=== PATIENT | female | born 1980 | race Caucasian/White ===

== ENCOUNTER 2017-01-02 09:38 | Emergency (ER) | payer BC ==
--- NOTE | 2017-01-02 09:48 | Emergency Department Record ---
History of Present Illness - General Chief complaint: Allergic Reaction Stated complaint: ALLERGIC REACTION Time Seen by Provider: 01/02/17 09:48 Source: Patient Mode of Arrival: Ambulatory Limitations: No limitations - History of Present Illness Initial Comments: The patient is here due to having a possible allergix rxn to a medicine. She did see her Psychiatrist yesterday and was started on Naltrexone and did take one at 8am today. She soon after began having trouble breathing and wheezing. There is no rash, hives, or swelling but she does feel very anxious and jittery. The patient states she has not taken any narcotics in over a month and has never taken Naltrexone in the past. She denies any pain or discomfort but is having mild chest tightness due to the YUMIKO. The patient denies any cardiac risk factors. MD Complaint: Allergic reaction Onset/Timin -: Hour(s) Symptoms: Itching, Difficulty breathing Severity: Moderate Treatment Prior to Arrival: None Previous Allergy History: None - Related Data Home Medications Medication Instructions Recorded Confirmed Last Taken Gabapentin [Neurontin] 300 mg PO QID 01/02/17 01/02/17 Unknown Naltrexone HCl [Revia] 50 mg PO DAILY 01/02/17 01/02/17 01/02/17 Trazodone HCl 50 mg PO ASDIR 01/02/17 01/02/17 Unknown Allergies Allergy/AdvReac Type Severity Reaction Status Date / Time No Known Drug Allergies Allergy Verified 01/02/17 09:56 Review of Systems Constitutional: Denies: Chills, Fever Eyes: Denies: Eye discharge ENT: Denies: Congestion Respiratory: Denies: Cough, Dyspnea Cardiovascular: Denies: Arrhythmia, Chest pain Endocrine: Denies: Fatigue Past Medical History - SOCIAL HISTORY Smoking Status: Former smoker - RESPIRATORY Hx Respiratory Disorders: No - CARDIOVASCULAR Hx Cardio Disorders: No - NEURO Hx Neuro Disorders: No - GI Hx GI Disorders: No - Hx Genitourinary Disorders: No - ENDOCRINE Hx Endocrine Disorders: No - MUSCULOSKELETAL Hx Musculoskeletal Disorders: No - PSYCH Hx Psych Problems: No - HEMATOLOGY/ONCOLOGY Hx Hematology/Oncology Disorders: No Physical Exam - General General Appearance: Alert, Oriented x3, Cooperative, Mild distress - Head Head exam: Atraumatic, Normocephalic, Normal inspection - Eye Eye exam: Normal appearance, PERRL - ENT Throat exam: Normal inspection. negative: Tonsillar erythema, Tonsillar exudate - Neck Neck exam: Normal inspection, Full ROM. negative: Tenderness - Respiratory Respiratory exam: Wheezes (midly.). negative: Normal lung sounds bilaterally, Decreased breath sounds, Rhonchi - Cardiovascular Cardiovascular Exam: Regular rate, Normal rhythm, Normal heart sounds - GI/Abdominal GI/Abdominal exam: Soft, Normal bowel sounds. negative: Tenderness - Extremities Extremities exam: Normal inspection, Full ROM, Normal capillary refill. negative: Tenderness - Back Back exam: Reports: Normal inspection - Neurological Neurological exam: Alert, Normal gait. negative: Abnormal gait, Motor sensory deficit - Psychiatric Psychiatric exam: Anxious. negative: Depressed - Skin Skin exam: negative: Rash, Urticaria Course - Reevaluation(s) Reevaluation #1: The patient is doing a lot better at this time. She has receive a Duoneb tx, Solumedrol, and Benadryl with improvement. She did just receive Ativan which seems to be helping a lot. 01/02/17 10:21 Reevaluation #2: The patient is doing better at this time. She states her breathing is a little better at this time. She denies any significant pain or discomfort. 01/02/17 11:19 Reevaluation #3: Due to the patient's clinical picture it is clear to me that she needs a larger hospital. She would like to go to [facility]. I did discuss the case with Dr. Hanna at [facility] and he does accept the patient for admission. The patient is doing much better at this time. Her BP is much improved and her breathing is much better. She denies any significant CP or discomfort at this time. 01/02/17 11:31 Reevaluation #4: The patient is doing much better at this time. Her HR is improved and her BP 115 /60. Biox is 97% on 2 Liters of O2 NC. She is resting much more comfortably with no chest pain or discomfort. 01/02/17 11:58 01/02/17 12:21 The patient is doing much better at this time. She denies any pain but is having mild YUMIKO with tightness. She denies any back or head pain and is breathing much better. She is presently being transferred. Her Biox is 96% on 4 liters of O2 nasal cannula. The patient has urinated 3 times since the Lasix was given. Her BP is 115/60 with a HR of 85. 01/02/17 13:21 Medical Decision Making - Data Complexity MDM Data: Labs Ordered and/or Reviewed, X-Ray Ordered and/or Reviewed, EKG Ordered and/or Reviewed - Lab Data Result diagrams: 01/02/17 09:40 01/02/17 09:40 - EKG Data -: EKG Interpreted by Me (ST at 103, Nonspecific IVCD. No definite acute injury pattern.) - Radiology Data Radiology results: Report reviewed (CXR: Mild to mod CHF.) Disposition Disposition: Transfer Clinical Impression: Pulmonary edema Qualifiers: Chronicity: acute Qualified Code(s): J81.0 - Acute pulmonary edema Disposition: Acute Care Hospital Transfer Transfer To: [facility] Reason For Transfer: Cardiac Accepting Physician: Jacques Time Discussed w/Accepting Physician: 11:33 Condition: (2) Stable Forms: Patient Portal Access Time of Disposition: 11:33
[2017-01-02] MEDS ORDERED: DIPHENHYDRAMINE HCL IV 50 MG/ML VIAL IVP ONE (09:50)
[2017-01-02] MEDS ORDERED: METHYLPREDNISOLONE PF 125MG/VIAL IVP ONE (09:50)
[2017-01-02] MEDS ORDERED: IPRATROPIUM/ALBUTEROL (0.5MG/3MG) NEB INH ONE (09:50)
[2017-01-02] MEDS ORDERED: LORAZEPAM 2 MG/ML VIAL IV ONE (10:08)
[2017-01-02 10:10] LABS: BASO % 0.7 % (0-6); EOS % 1.4 % (0-6); GRAN % 55.2 % (47-80); HEMOGLOBIN 13.7 gm/dl (11.6-16.0); LYMPH % 34.1 % (16-45); MEAN CELL VOLUME 84.3 fl (81-97); MEAN CORPUSCULAR HEMOGLOBIN 27.5 pg (27-33); MEAN CORPUSCULAR HGB CONC 32.6 g/dl (32-36); MEAN PLATELET VOLUME 9.9 fl (7.4-10.4); MONO % 8.6 % (0-9); PLATELET COUNT 328 K/uL (130-400); RED BLOOD COUNT 4.98 M/uL (3.80-5.40); RED CELL DISTRIBUTION WIDTH 13.1 % (11.5-14.5); WHITE BLOOD COUNT W/O DIFF 10.4 K/uL (4.2-12.2)
[2017-01-02] MEDS ORDERED: ALBUTEROL SULFATE (0.083%) 2.5 MG/3 ML NEB INH ONE (10:10)
[2017-01-02 10:17] LABS: ALB/GLOB RATIO 1.6 (1.1-1.8); ALBUMIN 4.5 gm/dL (3.5-5.0); ALKALINE PHOSPHATASE 84 U/L (38-126); ALT/SGPT 34 U/L (9-52); ANION GAP 10.1 (7-16); AST/SGOT 29 U/L (14-36); BILIRUBIN,TOTAL 0.76 mg/dL (0.2-1.3); BLOOD UREA NITROGEN 12 mg/dL (7-17); CARBON DIOXIDE 28.9 mmol/L (22-30); EST GLOMERULAR FILTRATION RATE > 60 ml/min; GLUCOSE,RANDOM 98 mg/dL (70-110); TOTAL PROTEIN 7.3 gm/dL (6.3-8.2)
[2017-01-02] MEDS ORDERED: FUROSEMIDE IV 40MG/4ML VIAL IVP ONE (10:44)
[2017-01-02] MEDS ORDERED: NITROGLYCERIN/D5W 50 MG/250 ML ML IV SCH (11:00)
[2017-01-02 11:09] LABS: CKMB 1.3 ug/L (0-6); TROPONIN I 0.068 ng/mL (0.00-0.034)
[2017-01-02] MEDS ORDERED: METOPROLOL TART 5 MG/5 ML VIAL IV ONE (11:13)
[2017-01-02] MEDS ORDERED: HEPARIN SODIUM 1000 UNIT/1 ML 10ML VIAL IVP ONE (11:28)
[2017-01-02] MEDS: LORAZEPAM 2 MG/ML VIAL IV ONE ×2 (11:28→11:32)
[2017-01-02] MEDS ORDERED: HEPARIN SODIUM/D5W 25,000 UNITS/500 ML BAG IV SCH (11:30)
[2017-01-02 11:57] LABS: INR 0.88; PARTIAL THROMBOPLASTIN TIME 26.3 SECONDS (24.5-39.1); PROTHROMBIN TIME (PATIENT) 9.9 SECONDS (9.5-12.1)
== END 2017-01-02 12:37 | disposition short-term general hospital (02) ==
LOC: ER 09:38
DX: J81.0 Acute pulmonary edema (principal); R07.89 Other chest pain; L29.9 Pruritus, unspecified; R06.00 Dyspnea, unspecified; Z87.891 Personal history of nicotine dependence
CPT/HCPCS: 99285 ×2; 96376; 96365; 96366; 96375; 96368; 82550; 85025; 85730; 85610; 82553; 84484; 80053; 71010; 94640; 93005; 93010; J2060; J1200; J1940; J2930

== ENCOUNTER 2017-01-08 03:41 | Emergency (ER) | payer BC ==
[2017-01-08 03:53] LABS: ARTERIAL BLOOD GAS BASE EXCESS -13.7 mmol/L (-2 - 3); ARTERIAL BLOOD GAS HCO3 20.7 mmol/L (18-23); CARBOXYHEMOGLOBIN 1.1 % (0-1.5); O2 HEMOGLOBIN 24.6 % vol (94-99); TOTAL HEMOGLOBIN 11.2 g/dl (11.6-16)
[2017-01-08 03:56] LABS: ARTERIAL BLD GAS O2 SATURATION 24.8 % (95-98); ARTERIAL BLOOD GAS PCO2 101.1 mmHg (35-48); ARTERIAL BLOOD GAS pH 6.94 (7.35-7.45)
[2017-01-08 04:01] LABS: HEMATOCRIT 36.8 % (35.0-47.0); HEMOGLOBIN 11.5 gm/dl (11.6-16.0); MEAN CELL VOLUME 89.8 fl (81-97); MEAN CORPUSCULAR HGB CONC 31.3 g/dl (32-36); MEAN PLATELET VOLUME 10.3 fl (7.4-10.4); PLATELET COUNT 284 K/uL (130-400); RED CELL DISTRIBUTION WIDTH 13.3 % (11.5-14.5)
[2017-01-08 04:02] LABS: ARTERIAL BLOOD GAS BASE EXCESS -6.2 mmol/L (-2 - 3); ARTERIAL BLOOD GAS HCO3 18.2 mmol/L (18-23); ARTERIAL BLOOD GAS PCO2 33.7 mmHg (35-48); ARTERIAL BLOOD GAS pH 7.35 (7.35-7.45); CARBOXYHEMOGLOBIN 1.7 % (0-1.5); O2 HEMOGLOBIN 13.4 % vol (94-99); TOTAL HEMOGLOBIN 10.1 g/dl (11.6-16)
[2017-01-08 04:03] LABS: ARTERIAL BLD GAS O2 SATURATION 13.4 % (95-98)
[2017-01-08 04:07] LABS: ALB/GLOB RATIO 1.6 (1.1-1.8); ALBUMIN 3.8 gm/dL (3.5-5.0); ANION GAP 19.2 (7-16); BILIRUBIN,TOTAL 0.43 mg/dL (0.2-1.3); CARBON DIOXIDE 20.8 mmol/L (22-30); CREATININE 2.5 mg/dL (0.52-1.04); TOTAL PROTEIN 6.2 gm/dL (6.3-8.2)
[2017-01-08 04:15] LABS: URINE APPEARANCE CLEAR; URINE BILIRUBIN NEGATIVE (NEGATIVE); URINE BLOOD LARGE (NEGATIVE); URINE COLOR YELLOW; URINE GLUCOSE (UA) NEGATIVE (NEGATIVE); URINE KETONE NEGATIVE (NEGATIVE); URINE LEUKOCYTE ESTERASE NEGATIVE (NEGATIVE); URINE NITRITE NEGATIVE (NEGATIVE); URINE PROTEIN TRACE (NEGATIVE); URINE UROBILINOGEN 0.2 E.U./dL (0.20 - 1.00)
[2017-01-08 04:22] LABS: AMPHETAMINE SCREEN URINE NOT DETECTED; BARBITURATE SCREEN URINE NOT DETECTED; BENZODIAZEPINE SCREEN URINE NOT DETECTED; COCAINE SCREEN URINE NOT DETECTED; METHADONE SCREEN URINE NOT DETECTED; METHAMPHETAMINE SCREEN NOT DETECTED; OPIATE SCREEN URINE NOT DETECTED; OXYCODONE SCREEN URINE NOT DETECTED; PHENCYCLIDINE SCREEN URINE NOT DETECTED; PROPOXYPHENE SCREEN URINE NOT DETECTED; THC SCREEN URINE NOT DETECTED; TRICYCLIC ANTIDEPRESSANT SCRN NOT DETECTED
[2017-01-08 04:28] LABS: URINE AMORPHOUS SEDIMENT 3+
--- NOTE | 2017-01-08 04:38 | Emergency Department Record ---
History of Present Illness - General Chief Complaint: Unresponsive Stated Complaint: CARDIAC ARREST Time Seen by Provider: 01/08/17 04:12 Source: EMS Mode of Arrival: EMS Limitations: Altered mental status - History of Present Illness Initial comments: pt was found down by mother for an unknown time. cpr was started. pt was discharged 2 days ago from [facility] for an allergic reaction and low ejection fraction. she was discharged on a zoll life vest. paramedics found pt to be in asystole, they regained a pulse with narcan Treatments Prior to Arrival: Other - Filippo Coma Scale Eye Response: (1) No response Motor Response: (1) No motor response Verbal Response: (1) No verbal response Filippo Total: 3 - Related Data Home Medications Medication Instructions Recorded Confirmed Last Taken Gabapentin [Neurontin] 300 mg PO QID 01/02/17 01/02/17 Unknown Naltrexone HCl [Revia] 50 mg PO DAILY 01/02/17 01/02/17 01/02/17 Trazodone HCl 50 mg PO ASDIR 01/02/17 01/02/17 Unknown Allergies Allergy/AdvReac Type Severity Reaction Status Date / Time No Known Drug Allergies Allergy Verified 01/02/17 09:56 Review of Systems ROS unobtainable: Due to endotracheal tube, Due to mental status Past Medical History - SOCIAL HISTORY Smoking Status: Former smoker - RESPIRATORY Hx Respiratory Disorders: No - CARDIOVASCULAR Hx Cardio Disorders: No - NEURO Hx Neuro Disorders: No - GI Hx GI Disorders: No - Hx Genitourinary Disorders: No - ENDOCRINE Hx Endocrine Disorders: No - MUSCULOSKELETAL Hx Musculoskeletal Disorders: No - PSYCH Hx Psych Problems: No - HEMATOLOGY/ONCOLOGY Hx Hematology/Oncology Disorders: No Physical Exam - General General Appearance: Severe distress, Other (unresponsive) - Head Head exam: Normal inspection - Eye Eye exam: Other (pupils fixed and dilated) Pupils: Normal accommodation - ENT ENT exam: Normal exam, Mucous membranes moist, Normal external ear exam, Normal orophraynx Ear exam: Normal external inspection. negative: External canal tenderness Nasal Exam: Normal inspection. negative: Discharge, Sinus tenderness Mouth exam: Normal external inspection, Tongue normal, Other (et tube in place) Teeth exam: Normal inspection. negative: Dental caries Throat exam: Normal inspection. negative: Tonsillar erythema, Tonsillar exudate - Neck Neck exam: Normal inspection, Full ROM. negative: Tenderness - Respiratory Respiratory exam: Normal lung sounds bilaterally. negative: Respiratory distress - Cardiovascular Cardiovascular Exam: Regular rate, Normal rhythm, Normal heart sounds - GI/Abdominal GI/Abdominal exam: Soft, Normal bowel sounds. negative: Tenderness - Rectal Rectal exam: Deferred - exam: Deferred - Extremities Extremities exam: Normal inspection, Full ROM, Normal capillary refill. negative: Tenderness - Back Back exam: Reports: Normal inspection, Full ROM. Denies: Muscle spasm, Rash noted, Tenderness - Neurological Neurological exam: Altered - Skin Skin exam: Cyanosis, Dry, Intact, Warm Course - Reevaluation(s) Reevaluation #1: 01/08/17 05:00 pt responded to epi and dopamine and vitals improved. pt then went into vfib and was defibrillated and then went into sinus, Reevaluation #2: 01/08/17 05:15 pt again required cpr and defib. once again hr and bp are restored. Reevaluation #3: 01/08/17 05:17 d/w dr cooper who accepted pt Medical Decision Making - Lab Data Result diagrams: 01/08/17 03:48 01/08/17 03:48 Lab Results 01/08/17 01/08/17 01/08/17 Range/Units 03:48 03:48 03:48 WBC 14.0 H (4.2-12.2) K/uL RBC 4.10 (3.80-5.40) M/uL Hgb 11.5 L (11.6-16.0) gm/dl Hct 36.8 (35.0-47.0) % MCV 89.8 (81-97) fl MCH 28.0 (27-33) pg MCHC 31.3 L (32-36) g/dl RDW 13.3 (11.5-14.5) % Plt Count 284 (130-400) K/uL MPV 10.3 (7.4-10.4) fl Neutrophils % 49.0 (47-80) % Band Neutrophils % 0.0 (0-5) % Eosinophils % Not Reportable Basophils % Not Reportable Lymphocytes 41.0 (16-45) % Monocytes 8.0 (0-9) % Basophils 1.0 (0-6) % Eosinophil Count 1.0 (0-6) % APTT 29.40 (24.5-39.1) SECONDS Puncture Site pCO2 (35-48) mmHg pO2 (83-108) mmHg HCO3 (18-23) mmol/L Oxyhemoglobin (94-99) % vol ABG pH (7.35-7.45) ABG O2 Saturation (95-98) % ABG Base Excess (-2 - 3) mmol/L Jaleel Test Carboxyhemoglobin (0-1.5) % Methemoglobin Total Hemoglobin (11.6-16) g/dl Actual Respiration Rate FiO2 Sodium 138 (136-145) mmol/L Potassium 4.1 (3.5-5.1) mmol/L Chloride 98 (98-107) mmol/L Carbon Dioxide 20.8 L (22-30) mmol/L Anion Gap 19.2 H (7-16) BUN 29 H (7-17) mg/dL Creatinine 2.5 H (0.52-1.04) mg/dL Estimated GFR 23 ml/min Random Glucose 210 H (70-110) mg/dL Calcium 8.3 L (8.5-10.1) mg/dL Total Bilirubin 0.43 (0.2-1.3) mg/dL AST 618 H (14-36) U/L ALT 485 H (9-52) U/L Alkaline Phosphatase 76 (38-126) U/L Troponin I 0.048 H (0.00-0.034) ng/mL Total Protein 6.2 L (6.3-8.2) gm/dL Albumin 3.8 (3.5-5.0) gm/dL Globulin 2.4 (1.4-4.8) gm/dL Albumin/Globulin Ratio 1.6 (1.1-1.8) Urine Color Urine Appearance Urine pH (5.0-8.0) Ur Specific [place] (1.002-1.030) Urine Protein (NEGATIVE) Urine Glucose (UA) (NEGATIVE) Urine Ketones (NEGATIVE) Urine Blood (NEGATIVE) Urine Nitrite (NEGATIVE) Urine Bilirubin (NEGATIVE) Urine Urobilinogen (0.20 - 1.00) E.U./dL Ur Leukocyte Esterase (NEGATIVE) Urine RBC (NONE SEEN) Urine WBC (0-2/hpf) Ur Epithelial Cells (FEW) Amorphous Sediment Urine HCG, Qual (NEGATIVE) Urine Opiates Screen Ur Oxycodone Screen Urine Methadone Screen Ur Propoxyphene Screen Ur Barbituates Screen Ur Tricyclics Screen Ur Phencyclidine Scrn Ur Amphetamine Screen U Methamphetamines Scrn U Benzodiazepines Scrn Urine Cocaine Screen Urine Cannabis Screen 01/08/17 01/08/17 01/08/17 Range/Units 03:48 03:50 04:10 WBC (4.2-12.2) K/uL RBC (3.80-5.40) M/uL Hgb (11.6-16.0) gm/dl Hct (35.0-47.0) % MCV (81-97) fl MCH (27-33) pg MCHC (32-36) g/dl RDW (11.5-14.5) % Plt Count (130-400) K/uL MPV (7.4-10.4) fl Neutrophils % (47-80) % Band Neutrophils % (0-5) % Eosinophils % Basophils % Lymphocytes (16-45) % Monocytes (0-9) % Basophils (0-6) % Eosinophil Count (0-6) % APTT (24.5-39.1) SECONDS Puncture Site Not Reportable Not Reportable pCO2 101.1 H* 33.7 L (35-48) mmHg pO2 25.0 L* 17.0 L* (83-108) mmHg HCO3 20.7 18.2 (18-23) mmol/L Oxyhemoglobin 24.6 L 13.4 L (94-99) % vol ABG pH 6.94 L* 7.35 (7.35-7.45) ABG O2 Saturation 24.8 L* 13.4 L* (95-98) % ABG Base Excess -13.7 L -6.2 L (-2 - 3) mmol/L Jaleel Test Not Reportable Not Reportable Carboxyhemoglobin 1.1 1.7 H (0-1.5) % Methemoglobin Not Reportable Not Reportable Total Hemoglobin 11.2 L 10.1 L (11.6-16) g/dl Actual Respiration Rate Not Reportable Not Reportable FiO2 Not Reportable Not Reportable Sodium (136-145) mmol/L Potassium (3.5-5.1) mmol/L Chloride (98-107) mmol/L Carbon Dioxide (22-30) mmol/L Anion Gap (7-16) BUN (7-17) mg/dL Creatinine (0.52-1.04) mg/dL Estimated GFR ml/min Random Glucose (70-110) mg/dL Calcium (8.5-10.1) mg/dL Total Bilirubin (0.2-1.3) mg/dL AST (14-36) U/L ALT (9-52) U/L Alkaline Phosphatase (38-126) U/L Troponin I (0.00-0.034) ng/mL Total Protein (6.3-8.2) gm/dL Albumin (3.5-5.0) gm/dL Globulin (1.4-4.8) gm/dL Albumin/Globulin Ratio (1.1-1.8) Urine Color Yellow Urine Appearance Clear Urine pH 5.5 (5.0-8.0) Ur Specific [place] >= 1.030 (1.002-1.030) Urine Protein Trace H (NEGATIVE) Urine Glucose (UA) Negative (NEGATIVE) Urine Ketones Negative (NEGATIVE) Urine Blood Large H (NEGATIVE) Urine Nitrite Negative (NEGATIVE) Urine Bilirubin Negative (NEGATIVE) Urine Urobilinogen 0.2 (0.20 - 1.00) E.U./dL Ur Leukocyte Esterase Negative (NEGATIVE) Urine RBC 7 - 10 (NONE SEEN) Urine WBC 3 - 5 (0-2/hpf) Ur Epithelial Cells 10 - 15 (FEW) Amorphous Sediment 3+ Urine HCG, Qual (NEGATIVE) Urine Opiates Screen Ur Oxycodone Screen Urine Methadone Screen Ur Propoxyphene Screen Ur Barbituates Screen Ur Tricyclics Screen Ur Phencyclidine Scrn Ur Amphetamine Screen U Methamphetamines Scrn U Benzodiazepines Scrn Urine Cocaine Screen Urine Cannabis Screen 01/08/17 01/08/17 Range/Units 04:10 04:10 WBC (4.2-12.2) K/uL RBC (3.80-5.40) M/uL Hgb (11.6-16.0) gm/dl Hct (35.0-47.0) % MCV (81-97) fl MCH (27-33) pg MCHC (32-36) g/dl RDW (11.5-14.5) % Plt Count (130-400) K/uL MPV (7.4-10.4) fl Neutrophils % (47-80) % Band Neutrophils % (0-5) % Eosinophils % Basophils % Lymphocytes (16-45) % Monocytes (0-9) % Basophils (0-6) % Eosinophil Count (0-6) % APTT (24.5-39.1) SECONDS Puncture Site pCO2 (35-48) mmHg pO2 (83-108) mmHg HCO3 (18-23) mmol/L Oxyhemoglobin (94-99) % vol ABG pH (7.35-7.45) ABG O2 Saturation (95-98) % ABG Base Excess (-2 - 3) mmol/L Jaleel Test Carboxyhemoglobin (0-1.5) % Methemoglobin Total Hemoglobin (11.6-16) g/dl Actual Respiration Rate FiO2 Sodium (136-145) mmol/L Potassium (3.5-5.1) mmol/L Chloride (98-107) mmol/L Carbon Dioxide (22-30) mmol/L Anion Gap (7-16) BUN (7-17) mg/dL Creatinine (0.52-1.04) mg/dL Estimated GFR ml/min Random Glucose (70-110) mg/dL Calcium (8.5-10.1) mg/dL Total Bilirubin (0.2-1.3) mg/dL AST (14-36) U/L ALT (9-52) U/L Alkaline Phosphatase (38-126) U/L Troponin I (0.00-0.034) ng/mL Total Protein (6.3-8.2) gm/dL Albumin (3.5-5.0) gm/dL Globulin (1.4-4.8) gm/dL Albumin/Globulin Ratio (1.1-1.8) Urine Color Urine Appearance Urine pH (5.0-8.0) Ur Specific [place] (1.002-1.030) Urine Protein (NEGATIVE) Urine Glucose (UA) (NEGATIVE) Urine Ketones (NEGATIVE) Urine Blood (NEGATIVE) Urine Nitrite (NEGATIVE) Urine Bilirubin (NEGATIVE) Urine Urobilinogen (0.20 - 1.00) E.U./dL Ur Leukocyte Esterase (NEGATIVE) Urine RBC (NONE SEEN) Urine WBC (0-2/hpf) Ur Epithelial Cells (FEW) Amorphous Sediment Urine HCG, Qual Negative (NEGATIVE) Urine Opiates Screen Not detected Ur Oxycodone Screen Not detected Urine Methadone Screen Not detected Ur Propoxyphene Screen Not detected Ur Barbituates Screen Not detected Ur Tricyclics Screen Not detected Ur Phencyclidine Scrn Not detected Ur Amphetamine Screen Not detected U Methamphetamines Scrn Not detected U Benzodiazepines Scrn Not detected Urine Cocaine Screen Not detected Urine Cannabis Screen Not detected Disposition Disposition: Transfer Clinical Impression: Cardiac arrest Disposition: Acute Care Hospital Transfer Transfer To: [facility] Reason For Transfer: post cardiac arrest Accepting Physician: dr cooper Time Discussed w/Accepting Physician: 05:05 Forms: Patient Portal Access
[2017-01-08 04:42] LABS: TROPONIN I 0.048 ng/mL (0.00-0.034)
[2017-01-08] MEDS ORDERED: AMIODARONE 150MG/100ML BOLUS 150 MG/100 ML ML IV ONE (05:05)
[2017-01-08] MEDS ORDERED: AMIODARONE 360MG/200ML MAINT 360 MG/200 ML ML IV ONE (05:06)
--- NOTE | 2017-01-08 06:05 | Emergency Department Record ---
History of Present Illness - General Chief Complaint: Unresponsive Stated Complaint: CARDIAC ARREST Time Seen by Provider: 01/08/17 04:12 Source: EMS Mode of Arrival: EMS Limitations: Altered mental status - History of Present Illness Treatments Prior to Arrival: Other - Filippo Coma Scale Eye Response: (1) No response Motor Response: (1) No motor response Verbal Response: (1) No verbal response Filippo Total: 3 - Related Data Home Medications Medication Instructions Recorded Confirmed Last Taken Gabapentin [Neurontin] 300 mg PO QID 01/02/17 01/02/17 Unknown Naltrexone HCl [Revia] 50 mg PO DAILY 01/02/17 01/02/17 01/02/17 Trazodone HCl 50 mg PO ASDIR 01/02/17 01/02/17 Unknown Allergies Allergy/AdvReac Type Severity Reaction Status Date / Time No Known Drug Allergies Allergy Verified 01/02/17 09:56 Past Medical History - SOCIAL HISTORY Smoking Status: Former smoker - RESPIRATORY Hx Respiratory Disorders: No - CARDIOVASCULAR Hx Cardio Disorders: No - NEURO Hx Neuro Disorders: No - GI Hx GI Disorders: No - Hx Genitourinary Disorders: No - ENDOCRINE Hx Endocrine Disorders: No - MUSCULOSKELETAL Hx Musculoskeletal Disorders: No - PSYCH Hx Psych Problems: No - HEMATOLOGY/ONCOLOGY Hx Hematology/Oncology Disorders: No Physical Exam - General Limitations: Altered mental status Medical Decision Making - Lab Data Result diagrams: 01/08/17 03:48 01/08/17 03:48 Lab Results 01/08/17 01/08/17 01/08/17 Range/Units 03:48 03:48 03:48 WBC 14.0 H (4.2-12.2) K/uL RBC 4.10 (3.80-5.40) M/uL Hgb 11.5 L (11.6-16.0) gm/dl Hct 36.8 (35.0-47.0) % MCV 89.8 (81-97) fl MCH 28.0 (27-33) pg MCHC 31.3 L (32-36) g/dl RDW 13.3 (11.5-14.5) % Plt Count 284 (130-400) K/uL MPV 10.3 (7.4-10.4) fl Neutrophils % 49.0 (47-80) % Band Neutrophils % 0.0 (0-5) % Eosinophils % Not Reportable Basophils % Not Reportable Lymphocytes 41.0 (16-45) % Monocytes 8.0 (0-9) % Basophils 1.0 (0-6) % Eosinophil Count 1.0 (0-6) % APTT 29.40 (24.5-39.1) SECONDS Puncture Site pCO2 (35-48) mmHg pO2 (83-108) mmHg HCO3 (18-23) mmol/L Oxyhemoglobin (94-99) % vol ABG pH (7.35-7.45) ABG O2 Saturation (95-98) % ABG Base Excess (-2 - 3) mmol/L Jaleel Test Carboxyhemoglobin (0-1.5) % Methemoglobin Total Hemoglobin (11.6-16) g/dl Actual Respiration Rate FiO2 Sodium 138 (136-145) mmol/L Potassium 4.1 (3.5-5.1) mmol/L Chloride 98 (98-107) mmol/L Carbon Dioxide 20.8 L (22-30) mmol/L Anion Gap 19.2 H (7-16) BUN 29 H (7-17) mg/dL Creatinine 2.5 H (0.52-1.04) mg/dL Estimated GFR 23 ml/min Random Glucose 210 H (70-110) mg/dL Calcium 8.3 L (8.5-10.1) mg/dL Total Bilirubin 0.43 (0.2-1.3) mg/dL AST 618 H (14-36) U/L ALT 485 H (9-52) U/L Alkaline Phosphatase 76 (38-126) U/L Troponin I 0.048 H (0.00-0.034) ng/mL Total Protein 6.2 L (6.3-8.2) gm/dL Albumin 3.8 (3.5-5.0) gm/dL Globulin 2.4 (1.4-4.8) gm/dL Albumin/Globulin Ratio 1.6 (1.1-1.8) Urine Color Urine Appearance Urine pH (5.0-8.0) Ur Specific [place] (1.002-1.030) Urine Protein (NEGATIVE) Urine Glucose (UA) (NEGATIVE) Urine Ketones (NEGATIVE) Urine Blood (NEGATIVE) Urine Nitrite (NEGATIVE) Urine Bilirubin (NEGATIVE) Urine Urobilinogen (0.20 - 1.00) E.U./dL Ur Leukocyte Esterase (NEGATIVE) Urine RBC (NONE SEEN) Urine WBC (0-2/hpf) Ur Epithelial Cells (FEW) Amorphous Sediment Urine HCG, Qual (NEGATIVE) Urine Opiates Screen Ur Oxycodone Screen Urine Methadone Screen Ur Propoxyphene Screen Ur Barbituates Screen Ur Tricyclics Screen Ur Phencyclidine Scrn Ur Amphetamine Screen U Methamphetamines Scrn U Benzodiazepines Scrn Urine Cocaine Screen Urine Cannabis Screen 01/08/17 01/08/17 01/08/17 Range/Units 03:48 03:50 04:10 WBC (4.2-12.2) K/uL RBC (3.80-5.40) M/uL Hgb (11.6-16.0) gm/dl Hct (35.0-47.0) % MCV (81-97) fl MCH (27-33) pg MCHC (32-36) g/dl RDW (11.5-14.5) % Plt Count (130-400) K/uL MPV (7.4-10.4) fl Neutrophils % (47-80) % Band Neutrophils % (0-5) % Eosinophils % Basophils % Lymphocytes (16-45) % Monocytes (0-9) % Basophils (0-6) % Eosinophil Count (0-6) % APTT (24.5-39.1) SECONDS Puncture Site Not Reportable Not Reportable pCO2 101.1 H* 33.7 L (35-48) mmHg pO2 25.0 L* 17.0 L* (83-108) mmHg HCO3 20.7 18.2 (18-23) mmol/L Oxyhemoglobin 24.6 L 13.4 L (94-99) % vol ABG pH 6.94 L* 7.35 (7.35-7.45) ABG O2 Saturation 24.8 L* 13.4 L* (95-98) % ABG Base Excess -13.7 L -6.2 L (-2 - 3) mmol/L Jaleel Test Not Reportable Not Reportable Carboxyhemoglobin 1.1 1.7 H (0-1.5) % Methemoglobin Not Reportable Not Reportable Total Hemoglobin 11.2 L 10.1 L (11.6-16) g/dl Actual Respiration Rate Not Reportable Not Reportable FiO2 Not Reportable Not Reportable Sodium (136-145) mmol/L Potassium (3.5-5.1) mmol/L Chloride (98-107) mmol/L Carbon Dioxide (22-30) mmol/L Anion Gap (7-16) BUN (7-17) mg/dL Creatinine (0.52-1.04) mg/dL Estimated GFR ml/min Random Glucose (70-110) mg/dL Calcium (8.5-10.1) mg/dL Total Bilirubin (0.2-1.3) mg/dL AST (14-36) U/L ALT (9-52) U/L Alkaline Phosphatase (38-126) U/L Troponin I (0.00-0.034) ng/mL Total Protein (6.3-8.2) gm/dL Albumin (3.5-5.0) gm/dL Globulin (1.4-4.8) gm/dL Albumin/Globulin Ratio (1.1-1.8) Urine Color Yellow Urine Appearance Clear Urine pH 5.5 (5.0-8.0) Ur Specific [place] >= 1.030 (1.002-1.030) Urine Protein Trace H (NEGATIVE) Urine Glucose (UA) Negative (NEGATIVE) Urine Ketones Negative (NEGATIVE) Urine Blood Large H (NEGATIVE) Urine Nitrite Negative (NEGATIVE) Urine Bilirubin Negative (NEGATIVE) Urine Urobilinogen 0.2 (0.20 - 1.00) E.U./dL Ur Leukocyte Esterase Negative (NEGATIVE) Urine RBC 7 - 10 (NONE SEEN) Urine WBC 3 - 5 (0-2/hpf) Ur Epithelial Cells 10 - 15 (FEW) Amorphous Sediment 3+ Urine HCG, Qual (NEGATIVE) Urine Opiates Screen Ur Oxycodone Screen Urine Methadone Screen Ur Propoxyphene Screen Ur Barbituates Screen Ur Tricyclics Screen Ur Phencyclidine Scrn Ur Amphetamine Screen U Methamphetamines Scrn U Benzodiazepines Scrn Urine Cocaine Screen Urine Cannabis Screen 01/08/17 01/08/17 Range/Units 04:10 04:10 WBC (4.2-12.2) K/uL RBC (3.80-5.40) M/uL Hgb (11.6-16.0) gm/dl Hct (35.0-47.0) % MCV (81-97) fl MCH (27-33) pg MCHC (32-36) g/dl RDW (11.5-14.5) % Plt Count (130-400) K/uL MPV (7.4-10.4) fl Neutrophils % (47-80) % Band Neutrophils % (0-5) % Eosinophils % Basophils % Lymphocytes (16-45) % Monocytes (0-9) % Basophils (0-6) % Eosinophil Count (0-6) % APTT (24.5-39.1) SECONDS Puncture Site pCO2 (35-48) mmHg pO2 (83-108) mmHg HCO3 (18-23) mmol/L Oxyhemoglobin (94-99) % vol ABG pH (7.35-7.45) ABG O2 Saturation (95-98) % ABG Base Excess (-2 - 3) mmol/L Jaleel Test Carboxyhemoglobin (0-1.5) % Methemoglobin Total Hemoglobin (11.6-16) g/dl Actual Respiration Rate FiO2 Sodium (136-145) mmol/L Potassium (3.5-5.1) mmol/L Chloride (98-107) mmol/L Carbon Dioxide (22-30) mmol/L Anion Gap (7-16) BUN (7-17) mg/dL Creatinine (0.52-1.04) mg/dL Estimated GFR ml/min Random Glucose (70-110) mg/dL Calcium (8.5-10.1) mg/dL Total Bilirubin (0.2-1.3) mg/dL AST (14-36) U/L ALT (9-52) U/L Alkaline Phosphatase (38-126) U/L Troponin I (0.00-0.034) ng/mL Total Protein (6.3-8.2) gm/dL Albumin (3.5-5.0) gm/dL Globulin (1.4-4.8) gm/dL Albumin/Globulin Ratio (1.1-1.8) Urine Color Urine Appearance Urine pH (5.0-8.0) Ur Specific [place] (1.002-1.030) Urine Protein (NEGATIVE) Urine Glucose (UA) (NEGATIVE) Urine Ketones (NEGATIVE) Urine Blood (NEGATIVE) Urine Nitrite (NEGATIVE) Urine Bilirubin (NEGATIVE) Urine Urobilinogen (0.20 - 1.00) E.U./dL Ur Leukocyte Esterase (NEGATIVE) Urine RBC (NONE SEEN) Urine WBC (0-2/hpf) Ur Epithelial Cells (FEW) Amorphous Sediment Urine HCG, Qual Negative (NEGATIVE) Urine Opiates Screen Not detected Ur Oxycodone Screen Not detected Urine Methadone Screen Not detected Ur Propoxyphene Screen Not detected Ur Barbituates Screen Not detected Ur Tricyclics Screen Not detected Ur Phencyclidine Scrn Not detected Ur Amphetamine Screen Not detected U Methamphetamines Scrn Not detected U Benzodiazepines Scrn Not detected Urine Cocaine Screen Not detected Urine Cannabis Screen Not detected Critical Care Time Critical Care Time: Yes Total Critical Care Time: 150 Disposition Clinical Impression: Cardiac arrest Disposition: Acute Care Hospital Transfer Forms: Patient Portal Access
--- NOTE | 2017-01-13 15:14 | RADIOLOGY REPORT ---
EXAM: CHEST AP or PA ONLY HISTORY: FULL ARREST. PATIENT UNRESPONSIVE. TECHNIQUE: AP supine portable chest. COMPARISON: Portable chest, 01/02/17. Report of the prior study is not as yet available within PACS. FINDINGS: Since the prior exam, an ETT has been placed with the tip located well above the siliva. Stable heart size. Progressive bilateral infiltrate may represent pulmonary edema although bilateral pneumonitis or even alveolar hemorrhage could give a similar appearance. Clinical correlation therefore suggested. No definite pleural effusion or pneumothorax seen although evaluation of this is limited by the supine positioning. There is probably some gaseous distention of either the stomach or splenic flexure of the colon noted in the left upper quadrant. IMPRESSION: 1. ETT IN POSITION. 2. PROGRESSIVE BILATERAL PULMONARY INFILTRATE SINCE 01/02/17. CONTINUED FOLLOW- UP SUGGESTED. 3. GASEOUS DISTENTION OF BOWEL, LEFT UPPER QUADRANT OF THE ABDOMEN. JOB NUMBER: [id number] MTDD
== END 2017-01-08 06:10 | disposition short-term general hospital (02) ==
LOC: ER 03:41
DX: I46.9 Cardiac arrest, cause unspecified (principal); I49.5 Sick sinus syndrome; E03.9 Hypothyroidism, unspecified; Z87.891 Personal history of nicotine dependence
CPT/HCPCS: 71010; 80053; 80305; 81001; 81025; 82375; 82803; 84484; 85027; 85730; 92950; 93005; 93010; 94002; 96365; 96366; 96375; 99291; 99292